=== PATIENT | female | born 1965 | race Caucasian/White ===

== ENCOUNTER 2019-03-21 12:14 | Inpatient (IN) | payer MEDICAID ==
[~2019-03-21] VITALS: Ht 144.8 cm; Wt 80.9 kg
[2019-03-21 12:20] VITALS: BP 127/74
--- NOTE | 2019-03-21 13:00 | NUR ---
PT WAS REFERRED TO ER BY PCP FURTHER EVALUATION REGARDING ABNORMAL LABS: H & H 6.4/19.2%. PT STATES SHE FEELS OCCASIONAL DIZZINESS, OTHER THAN THAT SHE IS NOT EXPERIENCING ANY SYMPTOM. PT DENIES SOB, CHEST PAIN, N/V. PER PT DAUGHTER, SHE HAS HAS CHRONIC ANEMIA FOR "YEARS" NOW. 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
[2019-03-21 13:37] LABS: EOSINOPHILS # (AUTO) 0.2 K/uL (0-0.4); MEAN CORPUSCULAR VOLUME 55.8 fL (80-94); NEUTROPHILS # (AUTO) 5.8 K/uL (1.8-7.7)
[2019-03-21 13:41] LABS: BASOPHILS % (AUTO) 0.5 % (0.0-2.0); EOSINOPHILS % (AUTO) 2.9 % (0.0-4.0); HEMATOCRIT 23.9 % (36-48); LYMPHOCYTES # (AUTO) 1.4 K/uL (2.5-16.5); MEAN CORPUSCULAR HEMOGLOBIN 16 pg (27-31); MEAN CORPUSCULAR HGB CONC 29 g/dL (33-37); MONOCYTES # (AUTO) 0.4 K/uL (0.8-1.0); MONOCYTES % (AUTO) 4.6 % (1.7-9.3); PLATELET COUNT (AUTO) 485 K/uL (140-450); RED BLOOD CELL COUNT(AUTO) 4.28 MIL/uL (4.20-5.40); RED CELL DISTRIBUTION WIDTH 22.1 % (11.6-13.7); WHITE BLOOD COUNT (AUTO) 7.9 K/uL (4.8-10.8)
[2019-03-21 13:43] LABS: HEMOGLOBIN 6.8 g/dL (12.0-16.0)
[2019-03-21] MEDS ORDERED: HYDROcodone/APAP 7.5/325 MG 1 TAB PO PRN (13:50)
[2019-03-21] MEDS ORDERED: DOCUSATE SODIUM 100 MG GELCAP PO PRN (13:50)
[2019-03-21] MEDS ORDERED: ONDANSETRON 4 MG/2 ML VIAL IM/IVP PRN (13:50)
[2019-03-21] MEDS ORDERED: ACETAMINOPHEN 325 MG TAB PO PRN (13:50)
[2019-03-21 14:11] LABS: APPEARANCE,URINE CLEAR (CLEAR); BILIRUBIN,URINE NEGATIVE (NEGATIVE); BLOOD, URINE NEGATIVE (NEGATIVE); COLOR,URINE YELLOW (YELLOW); LEUKOCYTE ESTERASE ,URINE 1+ (NEGATIVE); NITRITE, URINE NEGATIVE (NEGATIVE); PH,URINE 6.5 (5.0-9.0); UGLUCOSE NEGATIVE (NEGATIVE)
[2019-03-21 14:15] VITALS: BP 135/62
--- NOTE | 2019-03-21 14:15 | NUR ---
RECEIVED PT FROM ER NURSE VIA ABIODUN, PT AMBULATED TO THE BED, WITH AN IV LINE ON THE LEFT AC G.20 ON SALINE LOCK, VITAL SIGNS TAKEN AND BP IS 135/62, PULSE IS 74, O2 SATURATION IS 99%, TEMP. IS 97.6, RESPIRATION IS EVEN AT 18/MIN, PT DENIES PAIN AND NO SIGN OF DISTRESS NOTED. WILL CONTINUE TO MONITOR PT.
[2019-03-21 14:16] LABS: PROTHROMBIN TIME 9.3 secs (10.8-13.4)
[2019-03-21 14:17] LABS: RBC,URINE 0-5 /HPF (0-5); WBC,URINE 0-5 /HPF (0-5)
--- NOTE | 2019-03-21 14:17 | NUR ---
Pt transferred to Med/Surg via [facility] ROOM 105-B REPORT GIVEN TO AMARILIS IRWIN
[2019-03-21 14:20] LABS: BARBITURATE, URINE NEG. ng/ml (NEG <=200); BENZODIAZEPINE, URINE NEG. ng/mL (NEG <=200); CANNABINOID, URINE NEG. ng/mL (NEG <=50); COCAINE, URINE NEG. ng/mL (NEG <=300); OPIATE, URINE NEG. ng/mL (NEG <=2000); PHENCYCLIDINE SCREEN,URINE NEG. ng/mL (NEG <=25)
[2019-03-21 14:29] LABS: CHOL/HDL RATIO 3.3 (1-4.5); FREE T4 (FREE THYROXINE) 1.09 ng/dL (0.76-1.46); MAGNESIUM 1.9 mg/dL (1.8-2.4); PHOSPHORUS 3.4 mg/dL (2.5-4.9); THYROID STIMULATING HORMONE 1.82 uIU/mL (0.34-3.74)
--- NOTE | 2019-03-21 14:30 | NUR ---
MRSA SWAB DONE TO PT NOW AND SAMPLE WAS SENT TO LAB.
--- NOTE | 2019-03-21 14:31 | NUR ---
CHEST X-RAY BEING DONE TO PT NOW.
[2019-03-21 14:39] LABS: ANION GAP 11.3 (8-16); CARBON DIOXIDE 26.2 mmol/L (21-32); POTASSIUM 3.5 mmol/L (3.5-5.1)
[2019-03-21 14:40] LABS: CREATININE 0.6 mg/dL (0.6-1.3)
[2019-03-21 14:43] LABS: ALBUMIN 3.3 g/dL (3.4-5.0); TOTAL BILIRUBIN 0.3 mg/dL (0.0-1.0)
[2019-03-21] MEDS ORDERED: MECLIZINE 25 MG TAB PO PRN (15:40)
[2019-03-21] MEDS ORDERED: FUROSEMIDE 20 MG TAB PO SCH (16:00)
[2019-03-21] MEDS: SODIUM FERRIC GLUCONATE 125 MG in NACL 0.9% 100 ML IV SCH (16:26)
--- NOTE | 2019-03-21 16:31 | NUR ---
PT WAS GIVEN IV FERRLECIT NOW VIA PIGGYBACK. WILL MONITOR PT.
[2019-03-21] MEDS: ACETAMINOPHEN 325 MG TAB PO SCH ×2 (18:02→20:43)
--- NOTE | 2019-03-21 18:35 | NUR ---
BLOOD TRANSFUSION WAS STARTED TO PT NOW AT A RATE OF 60ML/HR, VITAL SIGNS TAKEN PRIOR TO TRANSFUSION. WILL MONITOR PT.
--- NOTE | 2019-03-21 19:05 | NUR ---
ENDORSED PT TO BATTER DEPOSITOR NURSE KILEY FOR CONTINUITY OF CARE, PT IS STABLE, DENIES PAIN, STILL ON BLOOD TRANSFUSION.
--- NOTE | 2019-03-21 19:10 | NUR ---
RECEIVED PT IN STABLE CONDITION FROM AM NURSE. AWAKE,ALERT AND ORIENTED X4. MED SURG PT. WITH NO C/O ANY DISCOMFORT OR PAIN NOTED. ON BLOOD TRANSFUSION 1 UNIT JUST STARTED INFUSING ON THE LT AC G#20. PT AWARE OF ANY POSSIBLE REACTION . BED ON LOW POSITION. SIDE RAILS UP X2. CALL LIGHT PLACED WITHIN EASY REACH. WILL CONTINUE TO MONITOR.
--- NOTE | 2019-03-21 20:30 | NUR ---
BLOOD TRANSFUSION STILL GOING ON. NO REACTION NOTED .
--- NOTE | 2019-03-21 21:35 | NUR ---
I UNIT PRBC TRANSFUSION COMPLETED. NO REACTION TO THE BLOOD NOTED. VITAL SIGNS STABLE. WILL STILL CONTINUE TO MONITOR.
[2019-03-21] MEDS: SULFAMETH/TRIMETH DS 800/160MG 1 TAB PO SCH (21:49)
--- NOTE | 2019-03-21 21:49 | NUR ---
BLOOD TRANSFUSION COMPLETED @213. LASIX 20 MG PO GIVEN PER ORDER . WILL CONTINUE TO MONITOR PT.
[2019-03-21 23:01] LABS: BASOPHILS % (AUTO) 0.5 % (0.0-2.0); HEMATOCRIT 27.3 % (36-48); HEMOGLOBIN 8.1 g/dL (12.0-16.0); LYMPHOCYTES # (AUTO) 1.1 K/uL (2.5-16.5); LYMPHOCYTES % (AUTO) 13.3 % (20.5-51.1); MEAN CORPUSCULAR HEMOGLOBIN 18 pg (27-31); MEAN CORPUSCULAR HGB CONC 30 g/dL (33-37); MEAN CORPUSCULAR VOLUME 59.7 fL (80-94); MONOCYTES # (AUTO) 0.3 K/uL (0.8-1.0); MONOCYTES % (AUTO) 3.7 % (1.7-9.3); NEUTROPHILS % (AUTO) 82.5 % (42.2-75.2); PLATELET COUNT (AUTO) 497 K/uL (140-450); RED BLOOD CELL COUNT(AUTO) 4.58 MIL/uL (4.20-5.40); RED CELL DISTRIBUTION WIDTH 23.8 % (11.6-13.7); WHITE BLOOD COUNT (AUTO) 8.4 K/uL (4.8-10.8)
--- NOTE | 2019-03-21 23:33 | NUR ---
RESULT OF CBC CAME. HGB 8.1 DR. WALKER MADE AWARE. NO NEW ORDER MADE.
[2019-03-22] MEDS: ACETAMINOPHEN 325 MG TAB PO SCH
[2019-03-22 00:25] VITALS: BP 107/58
--- NOTE | 2019-03-22 01:00 | NUR ---
MADE ROUNDS. SLEEPING . NO S/S/ OF ANY DISCOMFORT NOTED.
--- NOTE | 2019-03-22 02:00 | NUR ---
MADE ROUNDS. PT IS ASLEEP. NO S/S OF ANY DISCOMFORT NOTED . WILL CONTINUE TO MONIUTOR.
--- NOTE | 2019-03-22 04:00 | NUR ---
MADE ROUNDS. PT ASLEEP. NO S/S OF ANY DISCOMFORT NOTED.
--- NOTE | 2019-03-22 06:36 | NUR ---
PT HAS BEEN STABLE DURING THE NIGHT. WILL ENDORSE TO AM NURSE IN STABLE CONDITION.
--- NOTE | 2019-03-22 07:10 | NUR ---
RECEIVED PT FROM PRODUCTION POTTER NURSEKILEY, PT IS ASLEEP AND LYING ON THE BED WITH SIDE RAILS UP AND CALL LIGHT WITHIN REACH, IV LINE ON THE LEFT AC G. 20 ON SALINE LOCK, INTACT AND PATENT. NO SIGN OF DISTRESS NOTED, RESPIRATION IS EVEN. WILL MONITOR PT.
[2019-03-22 07:53] LABS: BASOPHILS # (AUTO) 0.1 K/uL (0.00-0.22); BASOPHILS % (AUTO) 0.6 % (0.0-2.0); HEMATOCRIT 27.1 % (36-48); LYMPHOCYTES # (AUTO) 1.3 K/uL (2.5-16.5); MEAN CORPUSCULAR HEMOGLOBIN 18 pg (27-31); MEAN CORPUSCULAR HGB CONC 30 g/dL (33-37); MEAN CORPUSCULAR VOLUME 60.1 fL (80-94); MONOCYTES # (AUTO) 0.6 K/uL (0.8-1.0); NEUTROPHILS # (AUTO) 7.7 K/uL (1.8-7.7); PLATELET COUNT (AUTO) 493 K/uL (140-450); RED BLOOD CELL COUNT(AUTO) 4.51 MIL/uL (4.20-5.40); RED CELL DISTRIBUTION WIDTH 24.4 % (11.6-13.7); WHITE BLOOD COUNT (AUTO) 9.6 K/uL (4.8-10.8)
[2019-03-22 08:00] VITALS: BP 116/46
[2019-03-22 08:38] LABS: LYMPHOCYTES % (AUTO) 13.8 % (20.5-51.1); NEUTROPHILS % (AUTO) 79.6 % (42.2-75.2)
[2019-03-22 08:39] LABS: ANION GAP 16.5 (8-16); CARBON DIOXIDE 22.9 mmol/L (21-32); CREATININE 0.5 mg/dL (0.6-1.3); POTASSIUM 3.4 mmol/L (3.5-5.1)
[2019-03-22] MEDS: SULFAMETH/TRIMETH DS 800/160MG 1 TAB PO SCH ×2 (09:34→20:19)
--- NOTE | 2019-03-22 09:34 | NUR ---
PT IS AWAKE AND SEATED ON THE CHAIR ON THE BEDSIDE, ORAL MEDICATION WAS GIVEN AND PT TOLERATED IT. WILL MONITOR PT.
--- NOTE | 2019-03-22 10:30 | NUR ---
INFORMED DR. SAMUELS OF PT'S K LEVEL OF 3.4, WILL PLACE AN ORDER.
[2019-03-22] MEDS ORDERED: POTASSIUM CHLORIDE 10 MEQ TABER PO SCH (11:18)
--- NOTE | 2019-03-22 12:41 | NUR ---
PT WAS GIVEN K-DUR 40MEQ NOW FOR A K LEVEL OF 3.4. WILL MONITOR PT.
[2019-03-22 16:00] VITALS: BP 119/52
[2019-03-22] MEDS: SODIUM FERRIC GLUCONATE 125 MG in NACL 0.9% 100 ML IV SCH (16:07)
--- NOTE | 2019-03-22 16:07 | NUR ---
PT WAS GIVEN FERRLECIT WAS GIVEN TO PT NOW VIA IVPB
--- NOTE | 2019-03-22 17:30 | NUR ---
IV LINE WAS INFILTRATED AND WAS CHANGED AND PLACED ON THE RT FA G.22.
--- NOTE | 2019-03-22 19:15 | NUR ---
ENDORSED PT TO MOTOR OPERATOR NURSE, KILEY FOR CONTINUITY OF CARE. PT IS STABLE WITH DAUGHTER ON THE BEDSIDE.
--- NOTE | 2019-03-22 19:16 | NUR ---
RECEIVED PT IN STABLE CONDITION FROM AM NURSE. AWAKE,ALERT AND ORIENTED X4. MED SURG PT. WITH NO C/O ANY DISCOMFORT NOR PAIN NOTED. HAS HL ON THE RT FA G#20. PLAN OF CARE DISCUSSED AND VERBALIZED UNDERSTANDING. FAMILY MEMBER AT BEDSIDE. BED ON LOW POSITION,CALL LIGHT PLACED WITHIN REACH. WILL CONTINUE TO MONITOR.
--- NOTE | 2019-03-22 20:30 | NUR ---
PT WASHED UP IN SIDE ROOM. PROVIDED WITH THINGS NEEDED. FAMILY MEMBER WITH PT.
--- NOTE | 2019-03-22 22:00 | NUR ---
MADE ROUNDS. ASLEEP. NO S/S OF ANY DISCOMFORT/PAIN NOTED.
[2019-03-22 23:45] VITALS: BP 101/46
--- NOTE | 2019-03-23 | NUR ---
PT STABLE. NO C/O ANY DISCOMFORT NOTED. WILL CONTINUE TO MONITOR.
--- NOTE | 2019-03-23 02:00 | NUR ---
PT HAD A MODERATE BM. NO PAIN NOTED.
--- NOTE | 2019-03-23 04:00 | NUR ---
PT IS ASLEEP. NO S/S OF ANY PAIN NOTED. WILL CONTINUE TO MONITOR.
--- NOTE | 2019-03-23 06:45 | NUR ---
RT FA G#22 IV ACCESS TENDER AND PAINFUL. DISCONTINUED. STARTED A NEW IV ACCESS ON THE LT HAND G#22. CLEAR AND PATENT.
--- NOTE | 2019-03-23 07:15 | NUR ---
OBTAINED BEDSIDE REPORT FROM PATROL SERGEANT NURSE KILEY. PT IS ASLEEP, NO S/S OF ACUTE DISTRESS OR SOB NOTED. PT IS ON ROOM AIR, SKIN IS INTACT. IV SITE IS ON THE L HAND, 22 G, SALINE LOCKED. PT IS AMBULATORY, UNIVERSAL FALL PRECAUTIONS IN PLACE. CALL LIGHT IS WITHIN REACH.
--- NOTE | 2019-03-23 07:20 | NUR ---
ENDORSED PT IN STABLE CONDITION TO AM NURSE.
[2019-03-23 07:36] LABS: ANION GAP 12.2 (8-16); CARBON DIOXIDE 25.4 mmol/L (21-32); CREATININE 0.7 mg/dL (0.6-1.3); POTASSIUM 3.6 mmol/L (3.5-5.1)
[2019-03-23 07:37] LABS: BASOPHILS # (AUTO) 0.1 K/uL (0.00-0.22); BASOPHILS % (AUTO) 0.9 % (0.0-2.0); EOSINOPHILS # (AUTO) 0.2 K/uL (0-0.4); EOSINOPHILS % (AUTO) 1.8 % (0.0-4.0); HEMATOCRIT 28.2 % (36-48); HEMOGLOBIN 8.2 g/dL (12.0-16.0); LYMPHOCYTES % (AUTO) 35.5 % (20.5-51.1); MEAN CORPUSCULAR HEMOGLOBIN 18 pg (27-31); MEAN CORPUSCULAR HGB CONC 29 g/dL (33-37); MONOCYTES # (AUTO) 0.9 K/uL (0.8-1.0); MONOCYTES % (AUTO) 8.3 % (1.7-9.3); NEUTROPHILS % (AUTO) 53.5 % (42.2-75.2); PLATELET COUNT (AUTO) 500 K/uL (140-450); RED BLOOD CELL COUNT(AUTO) 4.63 MIL/uL (4.20-5.40); RED CELL DISTRIBUTION WIDTH 23.4 % (11.6-13.7); WHITE BLOOD COUNT (AUTO) 11.2 K/uL (4.8-10.8)
[2019-03-23 08:00] VITALS: BP 103/49
--- NOTE | 2019-03-23 08:32 | NUR ---
PATIENT HAS BEEN SCREENED AND CATEGORIZED MODERATE NUTRITION RISK. PATIENT WILL BE SEEN WITHIN 3-5 DAYS OF ADMISSION. 03/24/19 03/26/[address]
[2019-03-23] MEDS: SULFAMETH/TRIMETH DS 800/160MG 1 TAB PO SCH (09:27)
--- NOTE | 2019-03-23 09:28 | NUR ---
SCHEDULED AM BACTRIM ADMINISTERED. PT TOLERATED WELL.
[2019-03-23] MEDS ORDERED: FERR325E14 PO (12:27)
[2019-03-23] MEDS ORDERED: SULF-58 PO (13:43)
--- NOTE | 2019-03-23 15:25 | NUR ---
PT HAS DC'D. PT WAS EXPLAINED DC INSTRUCTIONS AND GIVEN PRESCRIPTION. PT VERBALIZED UNDERSTANDING OF DC INSTRUCTIONS. IV SITE AND WRIST BANDS WERE REMOVED. PT LEFT WITH ALL HER BELONGINGS IN STABLE CONDITION, PICKED UP BY FRIEND.
[2019-03-24 06:22] LABS: FOLIC ACID 16.5 ng/mL (>3.0)
== END 2019-03-23 15:25 | disposition home or self-care (01) | DRG 663 ==
LOC: MED 12:14 → MTU 13:47
PROVIDERS: ADMIT General Practice; ATTEND General Practice
PROC: 30233N1 Transfusion of Nonautologous Red Blood Cells into Peripheral Vein, Percutaneous Approach (ICD-10-PCS; principal; 2019-03-21)
DX: D50.9 Iron deficiency anemia, unspecified (principal); E44.1 Mild protein-calorie malnutrition; N93.8 Other specified abnormal uterine and vaginal bleeding; E87.6 Hypokalemia; N39.0 Urinary tract infection, site not specified; Z68.38 Body mass index [BMI] 38.0-38.9, adult; Z90.49 Acquired absence of other specified parts of digestive tract; E78.5 Hyperlipidemia, unspecified; D25.9 Leiomyoma of uterus, unspecified; E66.9 Obesity, unspecified
CPT/HCPCS: 36415; 71045; 76856; 80048; 80053; 80305; 81001; 82150; 82272; 82607; 82728; 82746; 83036; 83540; 83690; 83735; 83880; 84100; 84439; 84443; 84484; 85025; 85045; 85610; 85730; 86886; 86900; 86901; 86920; 87081; 87086; 99285; J2916; J7030; Q0092; Q0163

== ENCOUNTER 2022-06-02 15:03 | Emergency (ER) | payer SELFPAY ==
[~2022-06-02] VITALS: Ht 147.3 cm; Wt 85.8 kg
[~2022-06-02 15:03] MED LIST: FERR325E14 PO; SULF-58 PO
[2022-06-02 15:24] VITALS: BP 129/98
--- NOTE | 2022-06-02 15:40 | NUR ---
BIB SELF C/O 810 RLQ ABDOMINAL PAIN X 3 DAYS AND C/O MID ABDOMNAL, LEFT ARM RASH X 5 DAYS. PMH: DENIES
[2022-06-02] MEDS ORDERED: KETOROLAC 30 MG/ML VIAL IVP ONE (17:00)
--- NOTE | 2022-06-02 17:17 | NUR ---
LAB AT BEDSIDE.
[2022-06-02 17:27] LABS: BASOPHILS # (AUTO) 0.1 K/uL (0.00-0.22); EOSINOPHILS # (AUTO) 0.5 K/uL (0-0.4); EOSINOPHILS % (AUTO) 6.9 % (0.0-4.0); HEMATOCRIT 38.7 % (36-48); LYMPHOCYTES % (AUTO) 26.4 % (20.5-51.1); MEAN CORPUSCULAR HEMOGLOBIN 29 pg (27-31); MEAN CORPUSCULAR HGB CONC 34 g/dL (33-37); MEAN CORPUSCULAR VOLUME 85.9 fL (80-94); MONOCYTES # (AUTO) 0.7 K/uL (0.8-1.0); MONOCYTES % (AUTO) 9.9 % (1.7-9.3); NEUTROPHILS # (AUTO) 4.2 K/uL (1.8-7.7); NEUTROPHILS % (AUTO) 55.8 % (42.2-75.2); PLATELET COUNT (AUTO) 325 K/uL (140-450); RED CELL DISTRIBUTION WIDTH 14.4 % (11.6-13.7); WHITE BLOOD COUNT (AUTO) 7.5 K/uL (4.8-10.8)
[2022-06-02 17:46] LABS: ALBUMIN 3.2 g/dL (3.4-5.0); ANION GAP 12.5 (8-16); CARBON DIOXIDE 27.3 mmol/L (21-32); CREATININE 0.6 mg/dL (0.6-1.3); POTASSIUM 3.8 mmol/L (3.5-5.1); TOTAL BILIRUBIN 0.3 mg/dL (0.0-1.0)
[2022-06-02 18:07] LABS: APPEARANCE,URINE CLEAR (CLEAR); BILIRUBIN,URINE NEGATIVE (NEGATIVE); BLOOD, URINE NEGATIVE (NEGATIVE); COLOR,URINE YELLOW (YELLOW); LEUKOCYTE ESTERASE ,URINE TRACE (NEGATIVE); NITRITE, URINE NEGATIVE (NEGATIVE); PH,URINE 6.5 (5.0-9.0); UGLUCOSE NEGATIVE (NEGATIVE)
--- NOTE | 2022-06-02 18:45 | NUR ---
Patient was taken to imaging via [facility].
[2022-06-02 18:58] LABS: RBC,URINE 0-5 /HPF (0-5)
--- NOTE | 2022-06-02 18:58 | NUR ---
Patient returned from imaging.
[2022-06-02 18:59] LABS: TRICHOMONAS,URINE None Seen /HPF (None Seen); WBC,URINE 0-5 /HPF (0-5); YEAST,URINE None Seen /HPF (None Seen)
--- NOTE | 2022-06-02 19:25 | NUR ---
Report given to DC Gonsalez for transfer of care.
--- NOTE | 2022-06-02 20:35 | NUR ---
Dr. Herrera examining patient.
[2022-06-02] MEDS ORDERED: MORPHINE SULFATE 4 MG/ML SYR IVP ONE (20:40)
[2022-06-02] MEDS ORDERED: NAPR-54 PO (21:21)
[2022-06-02 21:30] VITALS: BP 129/98
== END 2022-06-02 21:30 | disposition home or self-care (01) ==
LOC: MED 15:03
DX: D25.9 Leiomyoma of uterus, unspecified (principal); Z90.49 Acquired absence of other specified parts of digestive tract; Z98.890 Other specified postprocedural states
CPT/HCPCS: 36415; 74177; 80053; 81001; 81025; 83690; 84702; 85025; 96374; 99285; J1885; Q9967; J2270